=== PATIENT | male | born 1945 | race Caucasian/White ===

== ENCOUNTER 2022-05-03 15:43 | Inpatient (IN) ==
[2022-05-03 16:10] LABS: Basophils # 0.1 10*3/uL (0.0-0.2); Basophils % 0.7 % (0.0-0.8); Eosinophils # 0.1 10*3/uL (0.0-0.87); Eosinophils % 1.1 % (0.00-10.9); Hematocrit 49.5 VOL% (42.0-52.0); Hemoglobin 16.7 GM/DL (14.0-18.0); Immature Granulocytes % 0.4 %; Immature Granulocytes Absolute 0.04 #; Lymphocytes % 20.5 % (21.2-54.2); Mean Corpuscular HGB Conc 33.7 GM/DL (32-36); Mean Corpuscular Volume 88.6 FL (87-102); Mean Platelet Volume 10.2 FL (9.6-12.0); Monocytes # 0.8 10*3/uL (0.11-0.8); Monocytes % 8.6 % (1.7-12.7); Neutrophils % 68.7 % (38.7-73.9); Platelet Count 256 T/CUMM (130-400); Red Blood Count 5.59 MC/CUMM (3.8-5.5); Red Cell Distribution Width 13.4 % (9.3-17.3); White Blood Count 9.6 T/CUMM (4-12)
[2022-05-03 16:23] LABS: Albumin 3.6 G/DL (3.4-5.0); Bilirubin,Total 0.5 MG/DL (0.20-1.00); Calcium 9.1 MG/DL (8.5-10.1); Potassium 4.2 MMOL/L (3.5-5.1); Total Protein 7.5 G/DL (6.4-8.2)
[2022-05-03] MEDS ORDERED: ZALEPLON 5 MG CAPSULE PO PRN (18:05)
[2022-05-03] MEDS ORDERED: ONDANSETRON 4 MG/2 ML VIAL IV PRN (18:05)
[2022-05-03] MEDS ORDERED: GLUCAGON 1 MG VIAL IM PRN (18:05)
[2022-05-03] MEDS ORDERED: DEXTROSE 10% 250 ML BAG IV PRN (18:05)
[2022-05-03] MEDS ORDERED: ASPIRIN CHEW 81 MG TABLET PO STA (18:11)
[2022-05-03] MEDS ORDERED: MORPHINE 2 MG/1 ML SYRINGE IV PRN (18:11)
[2022-05-03] MEDS ORDERED: NITROGLYCERIN SL 0.4 MG TABLET SL PRN (18:12)
[2022-05-03] MEDS ORDERED: HEPARIN 5,000 UNIT/1 ML VIAL IV ONE (18:14)
[2022-05-03] MEDS ORDERED: ATORVASTATIN 40 MG TABLET PO STA (18:21)
[2022-05-03] MEDS: SODIUM CHLORIDE 0.9% 1,000 ML IV SCH ×2 (20:17→22:27)
[2022-05-03 21:48] LABS: INR 0.9; PT Patient Result 10.2 SECS (10.5-12.0); Partial Thromboplastin Time 26.8 SECS (23.7-32.9)
[2022-05-03] MEDS: METOPROLOL TARTRATE 25 MG TABLET PO SCH (22:26)
[2022-05-03] MEDS: HEPARIN DRIP 25,000 UNITS/500 ML PREMIX IV SCH (22:27)
[2022-05-04 05:19] LABS: Basophils # 0.1 10*3/uL (0.0-0.2); Basophils % 0.6 % (0.0-0.8); Eosinophils # 0.2 10*3/uL (0.0-0.87); Eosinophils % 2.1 % (0.00-10.9); Hemoglobin 15.4 GM/DL (14.0-18.0); Immature Granulocytes % 0.3 %; Immature Granulocytes Absolute 0.03 #; Lymphocytes # 1.9 10*3/uL (1.4-4.0); Lymphocytes % 20.2 % (21.2-54.2); Mean Corpuscular HGB Conc 32.8 GM/DL (32-36); Mean Corpuscular Volume 91.3 FL (87-102); Mean Platelet Volume 10.8 FL (9.6-12.0); Neutrophils % 66.8 % (38.7-73.9); Platelet Count 222 T/CUMM (130-400); Red Blood Count 5.15 MC/CUMM (3.8-5.5); Red Cell Distribution Width 13.3 % (9.3-17.3); White Blood Count 9.5 T/CUMM (4-12)
[2022-05-04 05:42] LABS: Alanine Aminotransferase 24 U/L (16-61); Albumin 3.1 G/DL (3.4-5.0); Alkaline Phosphatase 66 U/L (45-117); Aspartate Amino Transferase 23 U/L (0-37); Bilirubin,Total < 0.39 MG/DL (0.20-1.00); Blood Urea Nitrogen 26 MG/DL (7-18); Calcium 8.3 MG/DL (8.5-10.1); Carbon Dioxide 26 MMOL/L (21-32); Chloride 110 MMOL/L (98-107); Glucose 95 MG/DL (74-106); Osmolality,Calculated 283.4 MOS/KG (273-304); Potassium 3.9 MMOL/L (3.5-5.1); Sodium 140 MMOL/L (136-145); Total Protein 6.6 G/DL (6.4-8.2)
[2022-05-04 06:39] LABS: Risk Ratio 4.77; Thyroid Stimulating Hormone 3.41 uIU/ml (0.358-3.74); VLDL Cholesterol 44.2 MG/DL
[2022-05-04] MEDS: ASCORBIC ACID 500 MG TABLET PO SCH ×2 (09:05→21:04)
[2022-05-04] MEDS: PANTOPRAZOLE 40 MG TABLET PO SCH (09:05)
[2022-05-04] MEDS: ASPIRIN EC 81 MG TABLET PO SCH (09:05)
[2022-05-04] MEDS: METOPROLOL TARTRATE 25 MG TABLET PO SCH ×2 (09:05→21:04)
[2022-05-04] MEDS ORDERED: POTASSIUM CHLORIDE RIDER 10 MEQ/100 ML PREMIX IV PRN (09:19)
[2022-05-04] MEDS ORDERED: MAGNESIUM SULF RIDER 2 GM/50 ML PREMIX IV PRN (09:19)
[2022-05-04] MEDS: SODIUM CHLORIDE 0.9% 1,000 ML IV SCH ×2 (12:30→21:08)
[2022-05-04] MEDS: HEPARIN DRIP 25,000 UNITS/500 ML PREMIX IV SCH (19:36)
[2022-05-04] MEDS ORDERED: ATORVASTATIN 80 MG TABLET PO SCH (21:00)
[2022-05-04] MEDS: CETIRIZINE 10 MG TABLET PO SCH (21:04)
[2022-05-04] MEDS: FLUTICASONE 50 MCG NASAL SPRAY 16 GM BOTTLE BOTH NARES SCH (21:04)
[2022-05-05 03:07] LABS: Basophils # 0.1 10*3/uL (0.0-0.2); Basophils % 0.9 % (0.0-0.8); Eosinophils # 0.2 10*3/uL (0.0-0.87); Eosinophils % 2.4 % (0.00-10.9); Hematocrit 40.7 VOL% (42.0-52.0); Hemoglobin 13.4 GM/DL (14.0-18.0); Immature Granulocytes % 0.5 %; Immature Granulocytes Absolute 0.04 #; Lymphocytes # 1.8 10*3/uL (1.4-4.0); Lymphocytes % 23.5 % (21.2-54.2); Mean Corpuscular HGB Conc 32.9 GM/DL (32-36); Mean Corpuscular Volume 91.9 FL (87-102); Mean Platelet Volume 10.6 FL (9.6-12.0); Monocytes # 0.8 10*3/uL (0.11-0.8); Neutrophils % 62.7 % (38.7-73.9); Platelet Count 199 T/CUMM (130-400); Red Blood Count 4.43 MC/CUMM (3.8-5.5); Red Cell Distribution Width 13.3 % (9.3-17.3); White Blood Count 7.6 T/CUMM (4-12)
[2022-05-05 03:28] LABS: Albumin 2.7 G/DL (3.4-5.0); Bilirubin,Total 0.4 MG/DL (0.20-1.00); Potassium 4.2 MMOL/L (3.5-5.1); Total Protein 6.1 G/DL (6.4-8.2)
[2022-05-05 03:32] LABS: Osmolality,Calculated 281.3 MOS/KG (273-304); Potassium 4.1 MMOL/L (3.5-5.1)
[2022-05-05] MEDS: FLUTICASONE 50 MCG NASAL SPRAY 16 GM BOTTLE BOTH NARES SCH (09:39)
[2022-05-05] MEDS: ASPIRIN EC 81 MG TABLET PO SCH (09:40)
[2022-05-05] MEDS: CETIRIZINE 10 MG TABLET PO SCH (09:40)
[2022-05-05] MEDS: ASCORBIC ACID 500 MG TABLET PO SCH (09:40)
[2022-05-05] MEDS: PANTOPRAZOLE 40 MG TABLET PO SCH (09:40)
[2022-05-05] MEDS: METOPROLOL TARTRATE 25 MG TABLET PO SCH (09:40)
[2022-05-05] MEDS ORDERED: HEPARIN/NACL 0.9% 2 UNITS/ML 2,000 UNIT/1,000 ML BAG IV ONE (10:51)
[2022-05-05] MEDS ORDERED: DIAZEPAM 5 MG TABLET PO ONE (11:00)
[2022-05-05] MEDS ORDERED: diphenhydrAMINE CAP 50 MG CAPSULE PO ONE (11:00)
[2022-05-05] MEDS ORDERED: MIDAZOLAM 2 MG/2 ML VIAL ONE (11:20)
[2022-05-05] MEDS ORDERED: HYDROmorphone 1 MG/1 ML SYRINGE ONE (11:20)
[2022-05-05] MEDS ORDERED: HEPARIN 5,000 UNIT/1 ML VIAL ONE (11:44)
[2022-05-05] MEDS ORDERED: VANCOMYCIN 1,000 MG VIAL ONE ×2 (11:58→13:13)
[2022-05-05] MEDS ORDERED: VANCOMYCIN 500 MG VIAL ONE (11:58)
[2022-05-05] MEDS ORDERED: HEPARIN/NACL 0.9% 2 UNITS/ML 1,000 UNIT/500 ML BAG IV ONE ×4 (11:58→23:35)
[2022-05-05] MEDS ORDERED: PAPAVERINE 60 MG/2 ML VIAL ONE (11:58)
[2022-05-05] MEDS ORDERED: MIDAZOLAM 10 MG/2 ML VIAL ONE ×3 (12:03→13:48)
[2022-05-05] MEDS ORDERED: SUFentanil 250 MCG/5 ML AMP ONE ×2 (12:03)
[2022-05-05] MEDS ORDERED: CEFUROXIME INJ 1,500 MG in SODIUM CHLORIDE 0.9% 100 ML IV ONE (12:13)
[2022-05-05] MEDS ORDERED: SODIUM CHLORIDE 0.9% 1,000 ML IV PRN (12:14)
[2022-05-05] MEDS ORDERED: NITROPRUSSIDE 50 MG/2 ML VIAL ONE ×2 (12:47)
[2022-05-05] MEDS ORDERED: SODIUM BICARBONATE 50 MEQ/50 ML SYRINGE IV ONE (12:48)
[2022-05-05] MEDS ORDERED: EPINEPHrine 1 MG/10 ML SYRINGE ONE (12:48)
[2022-05-05] MEDS ORDERED: PHENYLEPHRINE DRIP 40 MG/250 ML PREMIX IV ONE (12:48)
[2022-05-05] MEDS ORDERED: CALCIUM CHLORIDE 1,000 MG/10 ML SYRINGE IV ONE (12:49)
[2022-05-05] MEDS ORDERED: ATROPINE 1 MG/10 ML SYRINGE ONE (12:50)
[2022-05-05 13:06] LABS: ABG Base Excess -3.4 MMOL/L (-2.5-2.5); ABG HCO3 21.6 MMOL/L (20-26); ABG Oxygen Saturation 99.6 % (95-100); ABG PCO2 36.1 MM HG (35-48); ABG PH 7.376 (7.35-7.45); ABG TCO2 18.5 MMOL/L (23-27); Glucose Heart Surgery 93 MG/DL (74-106); Hematocrit Heart Surgery 40.9 PERCENT (42-52); Hemoglobin Heart Surgery 13.3 G/DL (14.0-18.0); PCO2 Patient Temp Arterial 36.1 MMHG; PH Patient Temp Arterial 7.376; Patient Temperature 37 CELCIUS; Potassium Heart/CVR 4.4 MMOL/L (3.5-5.1); Sodium Heart/CVR 139 MMOL/L (135-145)
[2022-05-05] MEDS ORDERED: POTASSIUM CHLORIDE RIDER 20 MEQ/100 ML PREMIX IV ONE (13:11)
[2022-05-05] MEDS ORDERED: ALBUMIN 5% 12.5 GM/250 ML VIAL IV ONE (13:12)
[2022-05-05] MEDS ORDERED: PHENYLEPHRINE 1 MG/10 ML SYRINGE IV ONE (13:28)
[2022-05-05] MEDS ORDERED: SEVOFLURANE 1 UNIT/15 MINUTE INH ONE (13:28)
[2022-05-05] MEDS ORDERED: VECURONIUM 10 MG VIAL IV ONE ×3 (13:28→14:52)
[2022-05-05] MEDS ORDERED: ETOMIDATE 40 MG/20 ML VIAL IV ONE ×2 (13:28)
[2022-05-05] MEDS ORDERED: SUCCINYLCHOLINE 200 MG/10 ML VIAL ONE (13:28)
[2022-05-05] MEDS ORDERED: SODIUM CHLORIDE 0.9% 250 ML IV ONE ×2 (13:29)
[2022-05-05] MEDS ORDERED: SODIUM CHLORIDE 0.9% 100 ML IV ONE (13:29)
[2022-05-05] MEDS ORDERED: AMINOCAPROIC ACID 5,000 MG/20 ML VIAL ONE (13:29)
[2022-05-05] MEDS ORDERED: SODIUM CHLORIDE 0.9% 1,000 ML IV ONE (13:29)
[2022-05-05] MEDS ORDERED: MINERAL OIL/PETROLATUM OPH OINT 3.5 GM TUBE ONE (13:29)
[2022-05-05] MEDS ORDERED: LACTATED RINGERS 1,000 ML IV ONE (13:29)
[2022-05-05] MEDS ORDERED: PHENYLEPHRINE DRIP 20 MG/250 ML PREMIX IV ONE (13:30)
[2022-05-05 13:39] LABS: Bilirubin,Urine Negative (Negative); Blood, Urine Negative (Negative); Glucose,Urine (UA) Negative (Negative); Ketones,Urine Negative (Negative); Nitrite,Urine Negative (Negative); Protein,Urine Negative (Negative); Urine Appearance Clear (Clear); Urine Color Yellow (Yellow); Urine Specific Gravity 1.015 (1.001-1.035); Urine Urobilinogen 0.2 eU/dL (<2.0); Urine pH 6.5 (4.5-8.0)
[2022-05-05 13:43] LABS: Mucus,Urine Occasional /LPF (Occasional); RBC,Urine 2 /HPF (0-4)
[2022-05-05 14:31] LABS: Hematocrit Heart Surgery 28.6 PERCENT (42-52); Hemoglobin Heart Surgery 9.2 G/DL (14.0-18.0); PH Patient Temp Venous 7.406; PO2 Patient Temp Venous 47.2 MM HG; Potassium Heart/CVR 4.6 MMOL/L (3.5-5.1); VBG Base Excess -0.6 MEQ/L (0-4); VBG HCO3 23.7 MEQ/L (24-28); VBG Oxygen Saturation 83.5 %; VBG PH 7.406; VBG PO2 47.2 MMHG (17-40)
[2022-05-05] MEDS ORDERED: CALCIUM CHLORIDE 1,000 MG/10 ML VIAL IV ONE (14:53)
[2022-05-05 14:59] LABS: Hemoglobin Heart Surgery 9.4 G/DL (14.0-18.0); PH Patient Temp Venous 7.409; Potassium Heart/CVR 4.9 MMOL/L (3.5-5.1); VBG Base Excess -1.5 MEQ/L (0-4); VBG HCO3 22.8 MEQ/L (24-28); VBG Oxygen Saturation 79.2 %; VBG PH 7.409; VBG Total CO2 20.9 MMOL/L
[2022-05-05 15:36] LABS: ABG Base Excess -0.4 MMOL/L (-2.5-2.5); ABG HCO3 24.1 MMOL/L (20-26); ABG Oxygen Saturation 99.3 % (95-100); ABG PCO2 36.8 MM HG (35-48); ABG PH 7.418 (7.35-7.45); ABG TCO2 21.4 MMOL/L (23-27); Glucose Heart Surgery 174 MG/DL (74-106); Hematocrit Heart Surgery 32.8 PERCENT (42-52); Hemoglobin Heart Surgery 10.6 G/DL (14.0-18.0); Ionized Calcium Arterial 1.19 MMOL/L (1.21-1.46); PCO2 Patient Temp Arterial 36.8 MMHG; PH Patient Temp Arterial 7.418; Patient Temperature 37 CELCIUS; Potassium Heart/CVR 4.1 MMOL/L (3.5-5.1); Sodium Heart/CVR 135 MMOL/L (135-145)
[2022-05-05] MEDS ORDERED: MAGNESIUM SULFATE 5 GM/10 ML VIAL IV ONE (15:38)
[2022-05-05] MEDS ORDERED: methylPREDNISolone SOD SUC 1,000 MG/8 ML VIAL ONE (15:38)
[2022-05-05] MEDS ORDERED: ALBUMIN 25% 25 GM/100 ML VIAL IV ONE (15:38)
[2022-05-05] MEDS ORDERED: LIDOCAINE 2% 5 ML VIAL ONE (15:38)
[2022-05-05] MEDS ORDERED: MANNITOL 12.5 GM/50 ML VIAL IV ONE (15:39)
[2022-05-05] MEDS ORDERED: PROTAMINE SULFATE 250 MG/25 ML VIAL IV ONE (15:39)
[2022-05-05] MEDS ORDERED: HEPARIN 10,000 UNIT/10 ML VIAL ONE (15:39)
[2022-05-05] MEDS ORDERED: DEXTROSE 5% KCL 20 MEQ 20 MEQ/1,000 ML BAG IV ONE (15:39)
[2022-05-05] MEDS ORDERED: SODIUM BICARBONATE 50 MEQ/50 ML VIAL IV ONE ×3 (15:40→23:10)
[2022-05-05] MEDS ORDERED: FUROSEMIDE 20 MG/2 ML VIAL ONE (15:40)
[2022-05-05] MEDS ORDERED: MIDAZOLAM 10 MG/2 ML VIAL IV PRN (16:02)
[2022-05-05] MEDS ORDERED: VECURONIUM 10 MG VIAL IV PRN ×2 (16:02)
[2022-05-05] MEDS ORDERED: MAGNESIUM SULF RIDER 2 GM/50 ML PREMIX IV PRN (16:02)
[2022-05-05] MEDS ORDERED: CALCIUM CHLORIDE 1,000 MG/10 ML SYRINGE IV PRN (16:02)
[2022-05-05] MEDS ORDERED: INSULIN REGULAR 100 UNIT/ML IV ONE (16:02)
[2022-05-05] MEDS ORDERED: CHLORHEXIDINE 4% SOLN 118 ML BOTTLE TOP PRN (16:02)
[2022-05-05] MEDS ORDERED: SODIUM CHLORIDE 0.45% 1,000 ML IV SCH ×2 (16:02)
[2022-05-05] MEDS ORDERED: MAGNESIUM SULF RIDER 4 GM/100 ML PREMIX IV PRN (16:02)
[2022-05-05] MEDS ORDERED: MORPHINE 10 MG/1 ML VIAL IV PRN (16:02)
[2022-05-05] MEDS ORDERED: ONDANSETRON 4 MG/2 ML VIAL IV PRN (16:02)
[2022-05-05] MEDS ORDERED: NITROPRUSSIDE 100 MG in DEXTROSE 5% 250 ML IV PRN (16:02)
[2022-05-05] MEDS ORDERED: LACTATED RINGERS 250 ML IV PRN (16:02)
[2022-05-05] MEDS ORDERED: ACETAMINOPHEN 650 MG SUPP RECTAL PRN (16:02)
[2022-05-05] MEDS ORDERED: INSULIN REGULAR 100 UNIT/ML IV PRN (16:02)
[2022-05-05] MEDS ORDERED: DEXTROSE 10% 250 ML BAG IV PRN ×2 (16:08→16:09)
[2022-05-05 16:53] LABS: ABG PCO2 38.3 MM HG (35-48); ABG PH 7.401 (7.35-7.45)
[2022-05-05 16:54] LABS: ABG Base Excess -0.8 MMOL/L (-2.5-2.5); ABG HCO3 23.8 MMOL/L (20-26); ABG Oxygen Saturation 97.7 % (95-100); ABG TCO2 20.9 MMOL/L (23-27); Glucose Heart Surgery 149 MG/DL (74-106); Hematocrit Heart Surgery 37.8 PERCENT (42-52); Hemoglobin Heart Surgery 12.3 G/DL (14.0-18.0); Potassium Heart/CVR 3.6 MMOL/L (3.5-5.1)
[2022-05-05] MEDS: ALBUMIN 5% 12.5 GM/250 ML VIAL IV PRN ×6 (17:00→21:28)
[2022-05-05 17:04] LABS: PT Patient Result 10.9 SECS (10.5-12.0); Partial Thromboplastin Time 27.6 SECS (23.7-32.9)
[2022-05-05 17:12] LABS: Basophils % 0.3 % (0.0-0.8); Eosinophils # 0.1 10*3/uL (0.0-0.87); Eosinophils % 0.4 % (0.00-10.9); Hematocrit 36.9 VOL% (42.0-52.0); Hemoglobin 12.1 GM/DL (14.0-18.0); Immature Granulocytes % 0.7 %; Immature Granulocytes Absolute 0.09 #; Lymphocytes # 0.7 10*3/uL (1.4-4.0); Lymphocytes % 5.4 % (21.2-54.2); Mean Corpuscular HGB Conc 32.8 GM/DL (32-36); Mean Corpuscular Volume 91.6 FL (87-102); Mean Platelet Volume 10.2 FL (9.6-12.0); Monocytes # 0.7 10*3/uL (0.11-0.8); Monocytes % 5.5 % (1.7-12.7); Neutrophils % 87.7 % (38.7-73.9); Platelet Count 167 T/CUMM (130-400); Red Blood Count 4.03 MC/CUMM (3.8-5.5); Red Cell Distribution Width 13.2 % (9.3-17.3); White Blood Count 13.4 T/CUMM (4-12)
[2022-05-05] MEDS: POTASSIUM CHLORIDE RIDER 20 MEQ/100 ML PREMIX IV PRN ×2 (17:26→20:18)
[2022-05-05 17:29] LABS: CKMB % 5.91 %; Calcium 8.4 MG/DL (8.5-10.1); Osmolality,Calculated 285.1 MOS/KG (273-304); Potassium 3.7 MMOL/L (3.5-5.1); Total Protein 5.8 G/DL (6.4-8.2)
[2022-05-05 17:33] LABS: High Sensitive Troponin I* 2578.3 ng/L (0-78)
[2022-05-05 17:40] LABS: ABG Base Excess -0.2 MMOL/L (-2.5-2.5); ABG HCO3 24.2 MMOL/L (20-26); ABG Oxygen Saturation 96.4 % (95-100); ABG PCO2 37.8 MM HG (35-48); ABG PH 7.412 (7.35-7.45); ABG PO2 85.2 MM HG (80-95); ABG TCO2 21.2 MMOL/L (23-27); Glucose Heart Surgery 147 MG/DL (74-106); Hematocrit Heart Surgery 37.9 PERCENT (42-52); Hemoglobin Heart Surgery 12.3 G/DL (14.0-18.0); Potassium Heart/CVR 4.2 MMOL/L (3.5-5.1)
[2022-05-05] MEDS: LACTATED RINGERS 1,000 ML IV PRN ×3 (18:08→21:29)
[2022-05-05] MEDS: POTASSIUM CHLORIDE RIDER 10 MEQ/100 ML PREMIX IV PRN (19:25)
[2022-05-05] MEDS: SODIUM CHLORIDE 0.9% 1,000 ML IV SCH (19:26)
[2022-05-05 20:02] LABS: ABG Base Excess -0.3 MMOL/L (-2.5-2.5); ABG HCO3 24.2 MMOL/L (20-26); ABG Oxygen Saturation 96.6 % (95-100); ABG PCO2 39.4 MM HG (35-48); ABG PH 7.399 (7.35-7.45); ABG PO2 88.2 MM HG (80-95); ABG TCO2 21.8 MMOL/L (23-27); Glucose Heart Surgery 161 MG/DL (74-106); Hematocrit Heart Surgery 34.6 PERCENT (42-52); Hemoglobin Heart Surgery 11.2 G/DL (14.0-18.0); Potassium Heart/CVR 3.9 MMOL/L (3.5-5.1)
[2022-05-05] MEDS: INSULIN REGULAR 100 UNIT/ML SUBCUT SCH (20:10)
[2022-05-05] MEDS ORDERED: GLUCAGON 1 MG VIAL IM PRN (20:11)
[2022-05-05] MEDS ORDERED: DEXTROSE 50% 25 GM/50 ML VIAL IV PRN (20:11)
[2022-05-05] MEDS: CHLORHEXIDINE 0.12% ORAL RINSE 60 ML BOTTLE SWISH/SPIT SCH (20:18)
[2022-05-05] MEDS: PHENYLEPHRINE DRIP 40 MG/250 ML PREMIX IV PRN (20:27)
[2022-05-05] MEDS ORDERED: EPINEPHrine 1 MG/ML VIAL ONE (20:34)
[2022-05-05] MEDS: MIDAZOLAM 2 MG/2 ML VIAL IV PRN ×2 (20:40→22:25)
[2022-05-05] MEDS: MORPHINE 2 MG/1 ML SYRINGE IV PRN (22:00)
[2022-05-05 22:20] LABS: ABG Base Excess -3.6 MMOL/L (-2.5-2.5); ABG HCO3 21.4 MMOL/L (20-26); ABG Oxygen Saturation 97.4 % (95-100); ABG PCO2 48.3 MM HG (35-48); ABG PH 7.289 (7.35-7.45); ABG TCO2 21.4 MMOL/L (23-27); Glucose Heart Surgery 174 MG/DL (74-106); Hematocrit Heart Surgery 30.6 PERCENT (42-52); Hemoglobin Heart Surgery 9.9 G/DL (14.0-18.0); Potassium Heart/CVR 3.7 MMOL/L (3.5-5.1)
[2022-05-05] MEDS ORDERED: DEXMEDETOMIDINE 200 MCG in SODIUM CHLORIDE 0.9% 48 ML IV PRN (22:25)
[2022-05-05 23:00] LABS: ABG Base Excess -6.9 MMOL/L (-2.5-2.5); ABG HCO3 18.8 MMOL/L (20-26); ABG Oxygen Saturation 96.6 % (95-100); ABG PCO2 45.7 MM HG (35-48); ABG PH 7.253 (7.35-7.45); ABG TCO2 18.8 MMOL/L (23-27); Glucose Heart Surgery 201 MG/DL (74-106); Hematocrit Heart Surgery 30.1 PERCENT (42-52); Hemoglobin Heart Surgery 9.7 G/DL (14.0-18.0)
[2022-05-05 23:30] LABS: ABG Base Excess -5.6 MMOL/L (-2.5-2.5); ABG HCO3 19.8 MMOL/L (20-26); ABG Oxygen Saturation 97.3 % (95-100); ABG PCO2 41.1 MM HG (35-48); ABG PH 7.305 (7.35-7.45); ABG TCO2 18.8 MMOL/L (23-27); Glucose Heart Surgery 219 MG/DL (74-106); Hematocrit Heart Surgery 30.5 PERCENT (42-52); Hemoglobin Heart Surgery 9.9 G/DL (14.0-18.0); Potassium Heart/CVR 3.8 MMOL/L (3.5-5.1)
[2022-05-06] MEDS ORDERED: SODIUM BICARBONATE 50 MEQ/50 ML VIAL IV ONE ×4 (00:09→03:09)
[2022-05-06] MEDS ORDERED: FUROSEMIDE 40 MG/4 ML VIAL IV ONE ×2 (00:22→15:00)
[2022-05-06] MEDS: CEFUROXIME INJ 1,500 MG in SODIUM CHLORIDE 0.9% 100 ML IV SCH ×2 (00:50→12:27)
[2022-05-06] MEDS: INSULIN REGULAR 100 UNIT/ML SUBCUT SCH ×6 (01:02→21:05)
[2022-05-06 01:25] LABS: ABG Base Excess -9.2 MMOL/L (-2.5-2.5); ABG HCO3 17.1 MMOL/L (20-26); ABG Oxygen Saturation 97.8 % (95-100); ABG PCO2 37.4 MM HG (35-48); ABG PH 7.269 (7.35-7.45); ABG TCO2 15.6 MMOL/L (23-27); Glucose Heart Surgery 265 MG/DL (74-106); Hematocrit Heart Surgery 33.8 PERCENT (42-52); Potassium Heart/CVR 3.3 MMOL/L (3.5-5.1)
[2022-05-06] MEDS: POTASSIUM CHLORIDE RIDER 20 MEQ/100 ML PREMIX IV PRN ×5 (01:31→22:27)
[2022-05-06 01:46] LABS: CKMB % 5.34 %
[2022-05-06 01:50] LABS: High Sensitive Troponin I* 6378.3 ng/L (0-78)
[2022-05-06] MEDS ORDERED: SODIUM BICARBONATE 50 MEQ/50 ML SYRINGE IV ONE (02:05)
[2022-05-06] MEDS: POTASSIUM CHLORIDE RIDER 10 MEQ/100 ML PREMIX IV PRN ×3 (02:40→16:30)
[2022-05-06] MEDS: INSULIN REGULAR DRIP 100 ML IV SCH ×2 (03:00→16:05)
[2022-05-06] MEDS: SODIUM BICARB INJ 100 MEQ in STERILE WATER INJ 1,000 ML IV SCH ×2 (03:02→14:16)
[2022-05-06 03:04] LABS: ABG Base Excess -7.3 MMOL/L (-2.5-2.5); ABG HCO3 18.5 MMOL/L (20-26); ABG Oxygen Saturation 97.9 % (95-100); ABG PCO2 35.8 MM HG (35-48); ABG PH 7.314 (7.35-7.45); ABG TCO2 16.4 MMOL/L (23-27); Glucose Heart Surgery 279 MG/DL (74-106); Hematocrit Heart Surgery 34.5 PERCENT (42-52); Hemoglobin Heart Surgery 11.2 G/DL (14.0-18.0); Potassium Heart/CVR 3.8 MMOL/L (3.5-5.1)
[2022-05-06 03:35] LABS: VBG Base Excess -4.4 MEQ/L (0-4); VBG HCO3 20.4 MEQ/L (24-28); VBG Oxygen Saturation 73.6 %; VBG PCO2 40.6 MMHG (41-51); VBG PH 7.327; VBG PO2 42.1 MMHG (17-40); VBG Total CO2 19.4 MMOL/L
[2022-05-06 04:27] LABS: ABG Base Excess -2.3 MMOL/L (-2.5-2.5); ABG HCO3 22.5 MMOL/L (20-26); ABG Oxygen Saturation 98.2 % (95-100); ABG PCO2 33.3 MM HG (35-48); ABG PH 7.417 (7.35-7.45); ABG TCO2 19.3 MMOL/L (23-27); Glucose Heart Surgery 253 MG/DL (74-106); Hematocrit Heart Surgery 33.9 PERCENT (42-52); Potassium Heart/CVR 4.3 MMOL/L (3.5-5.1)
[2022-05-06 04:31] LABS: Basophils % 0.1 % (0.0-0.8); Hematocrit 33.1 VOL% (42.0-52.0); Immature Granulocytes % 0.7 %; Immature Granulocytes Absolute 0.11 #; Lymphocytes # 0.2 10*3/uL (1.4-4.0); Lymphocytes % 1.5 % (21.2-54.2); Mean Corpuscular HGB Conc 33.2 GM/DL (32-36); Mean Corpuscular Volume 90.7 FL (87-102); Mean Platelet Volume 10.3 FL (9.6-12.0); Monocytes # 0.7 10*3/uL (0.11-0.8); Monocytes % 4.4 % (1.7-12.7); Neutrophils % 93.3 % (38.7-73.9); Platelet Count 163 T/CUMM (130-400); Red Blood Count 3.65 MC/CUMM (3.8-5.5); Red Cell Distribution Width 14.1 % (9.3-17.3); White Blood Count 16.4 T/CUMM (4-12)
[2022-05-06 04:51] LABS: Band Neutrophils 1 % (0-10); Lymphocytes 1 % (20-55); Total Cells Counted 100
[2022-05-06 04:52] LABS: Microcytosis Slight; Platelet Estimate Adequate
[2022-05-06 04:54] LABS: Bilirubin,Total 1.1 MG/DL (0.20-1.00); Calcium 7.7 MG/DL (8.5-10.1); Osmolality,Calculated 296.8 MOS/KG (273-304); Potassium 4.4 MMOL/L (3.5-5.1); Total Protein 6.1 G/DL (6.4-8.2)
[2022-05-06 04:56] LABS: Bilirubin,Direct 0.59 MG/DL (0.0-0.20)
[2022-05-06 06:02] LABS: ABG Base Excess 2.6 MMOL/L (-2.5-2.5); ABG HCO3 26.7 MMOL/L (20-26); ABG Oxygen Saturation 98.7 % (95-100); ABG PCO2 31.5 MM HG (35-48); ABG TCO2 22.4 MMOL/L (23-27); Glucose Heart Surgery 213 MG/DL (74-106); Hematocrit Heart Surgery 33.6 PERCENT (42-52); Hemoglobin Heart Surgery 10.9 G/DL (14.0-18.0)
[2022-05-06 06:36] LABS: ABG HCO3 27.1 MMOL/L (20-26); ABG Oxygen Saturation 98.1 % (95-100); ABG PCO2 35.5 MM HG (35-48); ABG PH 7.479 (7.35-7.45); ABG PO2 98.7 MM HG (80-95); ABG TCO2 23.6 MMOL/L (23-27); Glucose Heart Surgery 198 MG/DL (74-106); Hematocrit Heart Surgery 33.9 PERCENT (42-52); Potassium Heart/CVR 3.7 MMOL/L (3.5-5.1)
[2022-05-06] MEDS: CHLORHEXIDINE 0.12% ORAL RINSE 60 ML BOTTLE SWISH/SPIT SCH ×2 (09:07→22:50)
[2022-05-06 09:40] LABS: ABG HCO3 28.9 MMOL/L (20-26); ABG Oxygen Saturation 97.6 % (95-100); ABG PCO2 36.8 MM HG (35-48); ABG PH 7.496 (7.35-7.45); ABG TCO2 25.4 MMOL/L (23-27); Glucose Heart Surgery 127 MG/DL (74-106); Hematocrit Heart Surgery 33.5 PERCENT (42-52); Hemoglobin Heart Surgery 10.8 G/DL (14.0-18.0); Potassium Heart/CVR 3.5 MMOL/L (3.5-5.1)
[2022-05-06] MEDS: MORPHINE 2 MG/1 ML SYRINGE IV PRN (10:16)
[2022-05-06] MEDS ORDERED: PANTOPRAZOLE 40 MG VIAL IV ONE (10:33)
[2022-05-06] MEDS ORDERED: ASPIRIN CHEW 81 MG TABLET PO ONE (10:33)
[2022-05-06 10:35] LABS: ABG Base Excess 4.2 MMOL/L (-2.5-2.5); ABG HCO3 28.2 MMOL/L (20-26); ABG Oxygen Saturation 97.9 % (95-100); ABG PCO2 39.5 MM HG (35-48); ABG PH 7.462 (7.35-7.45); ABG PO2 94.9 MM HG (80-95); ABG TCO2 25.4 MMOL/L (23-27); Glucose Heart Surgery 107 MG/DL (74-106); Hematocrit Heart Surgery 32.6 PERCENT (42-52); Hemoglobin Heart Surgery 10.5 G/DL (14.0-18.0); Potassium Heart/CVR 3.8 MMOL/L (3.5-5.1)
[2022-05-06 11:24] LABS: ABG Base Excess 4.5 MMOL/L (-2.5-2.5); ABG HCO3 28.5 MMOL/L (20-26); ABG Oxygen Saturation 98.3 % (95-100); ABG PCO2 40.1 MM HG (35-48); ABG PH 7.462 (7.35-7.45); ABG TCO2 25.7 MMOL/L (23-27); Glucose Heart Surgery 102 MG/DL (74-106); Hematocrit Heart Surgery 33.4 PERCENT (42-52); Hemoglobin Heart Surgery 10.8 G/DL (14.0-18.0); Potassium Heart/CVR 3.8 MMOL/L (3.5-5.1)
[2022-05-06 11:46] LABS: CKMB % 3.83 %; High Sensitive Troponin I* 5754.3 ng/L (0-78)
[2022-05-06 13:23] LABS: ABG Base Excess 3.6 MMOL/L (-2.5-2.5); ABG HCO3 27.6 MMOL/L (20-26); ABG Oxygen Saturation 98.6 % (95-100); ABG PCO2 40.6 MM HG (35-48); ABG PH 7.445 (7.35-7.45); Glucose Heart Surgery 143 MG/DL (74-106); Hemoglobin Heart Surgery 10.7 G/DL (14.0-18.0); Potassium Heart/CVR 3.9 MMOL/L (3.5-5.1)
[2022-05-06] MEDS ORDERED: KETOROLAC 15 MG/1 ML VIAL IV ONE (14:45)
[2022-05-06] MEDS: PHENYLEPHRINE DRIP 40 MG/250 ML PREMIX IV PRN (15:43)
[2022-05-06] MEDS: ALBUMIN 5% 12.5 GM/250 ML VIAL IV PRN (16:04)
[2022-05-06 17:44] LABS: CKMB % 2.65 %; High Sensitive Troponin I* 4176.2 ng/L (0-78)
[2022-05-06] MEDS ORDERED: KETOROLAC 30 MG/1 ML VIAL IV PRN (21:00)
[2022-05-06 21:30] LABS: ABG Base Excess 2.2 MMOL/L (-2.5-2.5); ABG HCO3 26.3 MMOL/L (20-26); ABG Oxygen Saturation 97.5 % (95-100); ABG PCO2 36.8 MM HG (35-48); ABG PH 7.456 (7.35-7.45); ABG PO2 96.6 MM HG (80-95); ABG TCO2 23.6 MMOL/L (23-27); Glucose Heart Surgery 143 MG/DL (74-106); Hematocrit Heart Surgery 30.5 PERCENT (42-52); Hemoglobin Heart Surgery 9.8 G/DL (14.0-18.0)
[2022-05-07] MEDS: CEFUROXIME INJ 1,500 MG in SODIUM CHLORIDE 0.9% 100 ML IV SCH (00:50)
[2022-05-07] MEDS ORDERED: FUROSEMIDE 40 MG/4 ML VIAL IV ONE (03:41)
[2022-05-07 04:35] LABS: Basophils % 0.1 % (0.0-0.8); Hematocrit 31.1 VOL% (42.0-52.0); Hemoglobin 9.8 GM/DL (14.0-18.0); Immature Granulocytes % 0.6 %; Immature Granulocytes Absolute 0.11 #; Lymphocytes # 0.8 10*3/uL (1.4-4.0); Lymphocytes % 4.2 % (21.2-54.2); Mean Corpuscular HGB Conc 31.5 GM/DL (32-36); Mean Corpuscular Volume 94.5 FL (87-102); Monocytes # 1.4 10*3/uL (0.11-0.8); Monocytes % 7.7 % (1.7-12.7); Neutrophils % 87.4 % (38.7-73.9); Platelet Count 127 T/CUMM (130-400); Red Blood Count 3.29 MC/CUMM (3.8-5.5); Red Cell Distribution Width 14.6 % (9.3-17.3); White Blood Count 18.5 T/CUMM (4-12)
[2022-05-07 04:47] LABS: Bilirubin,Direct 0.25 MG/DL (0.0-0.20)
[2022-05-07 04:48] LABS: Albumin 3.3 G/DL (3.4-5.0); Bilirubin,Total 0.7 MG/DL (0.20-1.00); Osmolality,Calculated 294.8 MOS/KG (273-304); Partial Thromboplastin Time 25.6 SECS (23.7-32.9); Potassium 4.4 MMOL/L (3.5-5.1)
[2022-05-07 05:05] LABS: Lymphocytes 3 % (20-55); Platelet Estimate Normal; Total Cells Counted 100
[2022-05-07] MEDS: POTASSIUM CHLORIDE RIDER 10 MEQ/100 ML PREMIX IV PRN (06:25)
[2022-05-07 08:29] LABS: % Iron Saturation 10.6 % (18-50); Ferritin 404.7 ng/mL (26-388)
[2022-05-07] MEDS ORDERED: LIDOCAINE 1% 20 ML VIAL MISC INJ ONE (09:30)
[2022-05-07] MEDS: INSULIN REGULAR 100 UNIT/ML SUBCUT SCH ×4 (10:12→20:50)
[2022-05-07] MEDS: ASCORBIC ACID 500 MG TABLET PO SCH (10:30)
[2022-05-07] MEDS: ATORVASTATIN 40 MG TABLET PO SCH (10:30)
[2022-05-07] MEDS: CHLORHEXIDINE 0.12% ORAL RINSE 60 ML BOTTLE SWISH/SPIT SCH ×2 (10:35→20:51)
[2022-05-07] MEDS ORDERED: ASPIRIN EC 81 MG TABLET PO ONE (10:55)
[2022-05-07] MEDS ORDERED: ACETAMINOPHEN 325 MG TABLET PO PRN ×2 (13:12→15:15)
[2022-05-07] MEDS ORDERED: MAGNESIUM SULF RIDER 2 GM/50 ML PREMIX IV PRN (15:15)
[2022-05-07] MEDS ORDERED: ONDANSETRON 4 MG/2 ML VIAL IV PRN (15:15)
[2022-05-07] MEDS ORDERED: MAGNESIUM HYDROXIDE SUSP 30 ML UDCUP PO PRN (15:15)
[2022-05-07] MEDS ORDERED: GLUCAGON 1 MG VIAL IM PRN (15:15)
[2022-05-07] MEDS ORDERED: SODIUM CHLOR 0.45% KCL 20 MEQ 20 MEQ/1,000 ML BAG IV SCH (15:15)
[2022-05-07] MEDS ORDERED: POTASSIUM CHLORIDE 20 MEQ TABLET PO PRN (15:15)
[2022-05-07] MEDS ORDERED: MAGNESIUM SULF RIDER 4 GM/100 ML PREMIX IV PRN (15:15)
[2022-05-07] MEDS ORDERED: DEXTROSE 10% 250 ML BAG IV PRN (15:15)
[2022-05-07] MEDS ORDERED: ALUMINUM/MAGNES/SIMETH MAX STR 30 ML UDCUP PO PRN (15:15)
[2022-05-07] MEDS: oxyCODONE/ACETAMINOPHEN 5-325 MG TABLET PO PRN (20:51)
[2022-05-08] MEDS ORDERED: FUROSEMIDE 40 MG/4 ML VIAL IV ONE (06:00)
[2022-05-08 06:04] LABS: Basophils % 0.1 % (0.0-0.8); Hematocrit 29.5 VOL% (42.0-52.0); Hemoglobin 9.5 GM/DL (14.0-18.0); Immature Granulocytes % 0.8 %; Immature Granulocytes Absolute 0.11 #; Lymphocytes # 1.2 10*3/uL (1.4-4.0); Lymphocytes % 8.8 % (21.2-54.2); Mean Corpuscular HGB Conc 32.2 GM/DL (32-36); Mean Corpuscular Volume 93.1 FL (87-102); Monocytes # 1.2 10*3/uL (0.11-0.8); Monocytes % 8.9 % (1.7-12.7); Neutrophils % 81.4 % (38.7-73.9); Platelet Count 122 T/CUMM (130-400); Red Blood Count 3.17 MC/CUMM (3.8-5.5); Red Cell Distribution Width 14.1 % (9.3-17.3); White Blood Count 13.6 T/CUMM (4-12)
[2022-05-08 06:33] LABS: Bilirubin,Direct 0.19 MG/DL (0.0-0.20)
[2022-05-08 06:38] LABS: Alanine Aminotransferase 31 U/L (16-61); Albumin 3.1 G/DL (3.4-5.0); Alkaline Phosphatase 38 U/L (45-117); Aspartate Amino Transferase 29 U/L (0-37); Bilirubin,Indirect 0.4 MG/DL (0.0-1.0); Bilirubin,Total 0.7 MG/DL (0.20-1.00); Calcium 8.1 MG/DL (8.5-10.1); Osmolality,Calculated 285.4 MOS/KG (273-304); Potassium 5.2 MMOL/L (3.5-5.1); Total Protein 5.5 G/DL (6.4-8.2); Total Protein 5.8 G/DL (6.4-8.2)
[2022-05-08] MEDS: INSULIN REGULAR 100 UNIT/ML SUBCUT SCH ×3 (08:00→17:06)
[2022-05-08] MEDS: PANTOPRAZOLE 40 MG TABLET PO SCH (08:09)
[2022-05-08] MEDS: ASPIRIN EC 81 MG TABLET PO SCH (08:09)
[2022-05-08] MEDS: ATORVASTATIN 40 MG TABLET PO SCH (08:09)
[2022-05-08] MEDS: FERROUS SULFATE 325 MG TABLET PO SCH (08:09)
[2022-05-08] MEDS: ASCORBIC ACID 500 MG TABLET PO SCH (08:09)
[2022-05-08] MEDS: DOCUSATE SODIUM 100 MG CAPSULE PO SCH (08:09)
[2022-05-08] MEDS: CHLORHEXIDINE 0.12% ORAL RINSE 60 ML BOTTLE SWISH/SPIT SCH ×2 (08:18→21:33)
[2022-05-08] MEDS ORDERED: AMIODARONE INJ 450 MG in DEXTROSE 5% 241 ML IV SCH ×2 (08:30→09:00)
[2022-05-08] MEDS: oxyCODONE/ACETAMINOPHEN 5-325 MG TABLET PO PRN ×2 (10:18→16:25)
[2022-05-08] MEDS: APIXABAN 5 MG TABLET PO SCH ×2 (11:25→21:33)
[2022-05-08 17:36] LABS: Calcium 8.2 MG/DL (8.5-10.1); Osmolality,Calculated 282.7 MOS/KG (273-304)
[2022-05-08] MEDS: AMIODARONE INJ 450 MG in DEXTROSE 5% 241 ML IV SCH (21:32)
[2022-05-08] MEDS: ZALEPLON 5 MG CAPSULE PO PRN (21:34)
[2022-05-09 05:48] LABS: Basophils % 0.2 % (0.0-0.8); Eosinophils # 0.1 10*3/uL (0.0-0.87); Eosinophils % 0.9 % (0.00-10.9); Hemoglobin 9.8 GM/DL (14.0-18.0); Immature Granulocytes % 0.7 %; Immature Granulocytes Absolute 0.09 #; Lymphocytes # 1.2 10*3/uL (1.4-4.0); Lymphocytes % 9.7 % (21.2-54.2); Mean Corpuscular HGB Conc 31.6 GM/DL (32-36); Mean Corpuscular Volume 93.4 FL (87-102); Mean Platelet Volume 10.8 FL (9.6-12.0); Monocytes # 1.2 10*3/uL (0.11-0.8); Monocytes % 9.9 % (1.7-12.7); Neutrophils % 78.6 % (38.7-73.9); Platelet Count 163 T/CUMM (130-400); Red Blood Count 3.32 MC/CUMM (3.8-5.5); Red Cell Distribution Width 13.7 % (9.3-17.3); White Blood Count 12.5 T/CUMM (4-12)
[2022-05-09 06:06] LABS: Calcium 8.2 MG/DL (8.5-10.1); Osmolality,Calculated 282.5 MOS/KG (273-304); Potassium 3.9 MMOL/L (3.5-5.1)
[2022-05-09 06:15] LABS: Alanine Aminotransferase 42 U/L (16-61); Albumin 2.8 G/DL (3.4-5.0); Alkaline Phosphatase 50 U/L (45-117); Aspartate Amino Transferase 34 U/L (0-37); Bilirubin,Indirect 0.8 MG/DL (0.0-1.0); Blood Urea Nitrogen 26 MG/DL (7-18); Calcium 7.9 MG/DL (8.5-10.1); Carbon Dioxide 28 MMOL/L (21-32); Chloride 106 MMOL/L (98-107); Glucose 109 MG/DL (74-106); Osmolality,Calculated 284.4 MOS/KG (273-304); Potassium 4.2 MMOL/L (3.5-5.1); Sodium 140 MMOL/L (136-145); Total Protein 5.7 G/DL (6.4-8.2)
[2022-05-09] MEDS: AMIODARONE INJ 450 MG in DEXTROSE 5% 241 ML IV SCH (08:18)
[2022-05-09] MEDS: ASPIRIN EC 81 MG TABLET PO SCH (08:46)
[2022-05-09] MEDS: oxyCODONE/ACETAMINOPHEN 5-325 MG TABLET PO PRN (08:47)
[2022-05-09] MEDS: ATORVASTATIN 40 MG TABLET PO SCH (08:47)
[2022-05-09] MEDS: PANTOPRAZOLE 40 MG TABLET PO SCH (08:48)
[2022-05-09] MEDS: ASCORBIC ACID 500 MG TABLET PO SCH (08:48)
[2022-05-09] MEDS: DOCUSATE SODIUM 100 MG CAPSULE PO SCH (08:48)
[2022-05-09] MEDS: FERROUS SULFATE 325 MG TABLET PO SCH (08:48)
[2022-05-09] MEDS: APIXABAN 5 MG TABLET PO SCH ×2 (08:49→21:19)
[2022-05-09] MEDS: AMIODARONE 200 MG TABLET PO SCH ×2 (08:49→21:19)
[2022-05-09] MEDS: CHLORHEXIDINE 0.12% ORAL RINSE 60 ML BOTTLE SWISH/SPIT SCH ×2 (11:14→21:19)
[2022-05-09] MEDS ORDERED: LACTULOSE 20 GM/30 ML UDCUP PO PRN (17:04)
[2022-05-09] MEDS: ZALEPLON 5 MG CAPSULE PO PRN (21:19)
[2022-05-10 05:43] LABS: Calcium 8.7 MG/DL (8.5-10.1); Osmolality,Calculated 279.7 MOS/KG (273-304); Potassium 3.9 MMOL/L (3.5-5.1)
[2022-05-10 05:47] LABS: Basophils % 0.2 % (0.0-0.8); Eosinophils # 0.3 10*3/uL (0.0-0.87); Eosinophils % 2.5 % (0.00-10.9); Hematocrit 30.4 VOL% (42.0-52.0); Hemoglobin 9.7 GM/DL (14.0-18.0); Immature Granulocytes % 0.9 %; Immature Granulocytes Absolute 0.12 #; Lymphocytes # 1.5 10*3/uL (1.4-4.0); Lymphocytes % 11.1 % (21.2-54.2); Mean Corpuscular HGB Conc 31.9 GM/DL (32-36); Mean Corpuscular Volume 93.5 FL (87-102); Mean Platelet Volume 10.7 FL (9.6-12.0); Monocytes # 1.4 10*3/uL (0.11-0.8); Monocytes % 10.3 % (1.7-12.7); Platelet Count 174 T/CUMM (130-400); Red Blood Count 3.25 MC/CUMM (3.8-5.5); Red Cell Distribution Width 13.7 % (9.3-17.3); White Blood Count 13.1 T/CUMM (4-12)
[2022-05-10 06:40] LABS: Albumin 2.5 G/DL (3.4-5.0); Calcium 8.7 MG/DL (8.5-10.1); Osmolality,Calculated 284.3 MOS/KG (273-304); Total Protein 6.1 G/DL (6.4-8.2)
[2022-05-10] MEDS: POLYETHYLENE GLYCOL POWDER 17 GM PACK PO SCH (10:03)
[2022-05-10] MEDS: ASCORBIC ACID 500 MG TABLET PO SCH (10:03)
[2022-05-10] MEDS: ATORVASTATIN 40 MG TABLET PO SCH (10:04)
[2022-05-10] MEDS: ASPIRIN EC 81 MG TABLET PO SCH (10:04)
[2022-05-10] MEDS: APIXABAN 5 MG TABLET PO SCH ×2 (10:04→20:23)
[2022-05-10] MEDS: DOCUSATE SODIUM 100 MG CAPSULE PO SCH (10:04)
[2022-05-10] MEDS: AMIODARONE 200 MG TABLET PO SCH ×2 (10:04→20:23)
[2022-05-10] MEDS: CHLORHEXIDINE 0.12% ORAL RINSE 60 ML BOTTLE SWISH/SPIT SCH ×2 (10:04→20:23)
[2022-05-10] MEDS: FERROUS SULFATE 325 MG TABLET PO SCH (10:04)
[2022-05-10] MEDS: PANTOPRAZOLE 40 MG TABLET PO SCH (10:06)
[2022-05-10] MEDS: ZALEPLON 5 MG CAPSULE PO PRN (20:25)
[2022-05-11 06:52] LABS: Basophils % 0.3 % (0.0-0.8); Eosinophils # 0.4 10*3/uL (0.0-0.87); Eosinophils % 2.9 % (0.00-10.9); Hematocrit 29.6 VOL% (42.0-52.0); Hemoglobin 9.4 GM/DL (14.0-18.0); Immature Granulocytes % 0.8 %; Immature Granulocytes Absolute 0.11 #; Lymphocytes # 1.1 10*3/uL (1.4-4.0); Lymphocytes % 8.7 % (21.2-54.2); Mean Corpuscular HGB Conc 31.8 GM/DL (32-36); Mean Corpuscular Volume 93.7 FL (87-102); Mean Platelet Volume 10.9 FL (9.6-12.0); Monocytes # 1.2 10*3/uL (0.11-0.8); Monocytes % 9.2 % (1.7-12.7); Neutrophils % 78.1 % (38.7-73.9); Platelet Count 225 T/CUMM (130-400); Red Blood Count 3.16 MC/CUMM (3.8-5.5); Red Cell Distribution Width 13.8 % (9.3-17.3)
[2022-05-11 07:13] LABS: Calcium 8.3 MG/DL (8.5-10.1); Osmolality,Calculated 275.8 MOS/KG (273-304); Potassium 4.3 MMOL/L (3.5-5.1)
[2022-05-11 07:14] LABS: Eosinophils 5 % (0-10); Lymphocytes 3 % (20-55); Platelet Estimate Adequate; Total Cells Counted 100
[2022-05-11 07:35] LABS: Alanine Aminotransferase 59 U/L (16-61); Albumin 2.3 G/DL (3.4-5.0); Alkaline Phosphatase 64 U/L (45-117); Aspartate Amino Transferase 31 U/L (0-37); Bilirubin,Indirect 0.6 MG/DL (0.0-1.0); Blood Urea Nitrogen 21 MG/DL (7-18); Calcium 8.3 MG/DL (8.5-10.1); Carbon Dioxide 27 MMOL/L (21-32); Chloride 104 MMOL/L (98-107); Glucose 97 MG/DL (74-106); Osmolality,Calculated 277.7 MOS/KG (273-304); Potassium 4.1 MMOL/L (3.5-5.1); Sodium 138 MMOL/L (136-145); Total Protein 5.9 G/DL (6.4-8.2)
[2022-05-11] MEDS: POLYETHYLENE GLYCOL POWDER 17 GM PACK PO SCH (09:39)
[2022-05-11] MEDS: ATORVASTATIN 40 MG TABLET PO SCH (09:40)
[2022-05-11] MEDS: DOCUSATE SODIUM 100 MG CAPSULE PO SCH (09:40)
[2022-05-11] MEDS: APIXABAN 5 MG TABLET PO SCH ×2 (09:40→21:47)
[2022-05-11] MEDS: ASCORBIC ACID 500 MG TABLET PO SCH (09:40)
[2022-05-11] MEDS: FERROUS SULFATE 325 MG TABLET PO SCH (09:40)
[2022-05-11] MEDS: PANTOPRAZOLE 40 MG TABLET PO SCH (09:40)
[2022-05-11] MEDS: ASPIRIN EC 81 MG TABLET PO SCH (09:40)
[2022-05-11] MEDS: AMIODARONE 200 MG TABLET PO SCH ×3 (09:47→21:47)
[2022-05-11] MEDS: CHLORHEXIDINE 0.12% ORAL RINSE 60 ML BOTTLE SWISH/SPIT SCH ×2 (09:47→21:47)
[2022-05-11] MEDS ORDERED: guaiFENesin 200 MG/10 ML UDCUP PO PRN (20:32)
[2022-05-12 03:59] LABS: Basophils % 0.3 % (0.0-0.8); Eosinophils # 0.4 10*3/uL (0.0-0.87); Eosinophils % 3.4 % (0.00-10.9); Hematocrit 28.8 VOL% (42.0-52.0); Hemoglobin 9.3 GM/DL (14.0-18.0); Immature Granulocytes % 1.6 %; Immature Granulocytes Absolute 0.18 #; Lymphocytes # 1.2 10*3/uL (1.4-4.0); Lymphocytes % 10.7 % (21.2-54.2); Mean Corpuscular HGB Conc 32.3 GM/DL (32-36); Mean Corpuscular Volume 92.3 FL (87-102); Mean Platelet Volume 10.4 FL (9.6-12.0); Monocytes # 1.1 10*3/uL (0.11-0.8); Monocytes % 9.6 % (1.7-12.7); Neutrophils % 74.4 % (38.7-73.9); Platelet Count 236 T/CUMM (130-400); Red Blood Count 3.12 MC/CUMM (3.8-5.5); Red Cell Distribution Width 13.9 % (9.3-17.3); White Blood Count 11.2 T/CUMM (4-12)
[2022-05-12 04:21] LABS: Alanine Aminotransferase 50 U/L (16-61); Albumin 2.2 G/DL (3.4-5.0); Alkaline Phosphatase 61 U/L (45-117); Aspartate Amino Transferase 29 U/L (0-37); Bilirubin,Indirect 0.5 MG/DL (0.0-1.0); Blood Urea Nitrogen 18 MG/DL (7-18); Calcium 8.1 MG/DL (8.5-10.1); Carbon Dioxide 26 MMOL/L (21-32); Chloride 107 MMOL/L (98-107); Glucose 101 MG/DL (74-106); Osmolality,Calculated 282.3 MOS/KG (273-304); Potassium 4.2 MMOL/L (3.5-5.1); Sodium 141 MMOL/L (136-145); Total Protein 5.9 G/DL (6.4-8.2)
[2022-05-12] MEDS ORDERED: MIDAZOLAM 10 MG/2 ML VIAL ONE (07:29)
[2022-05-12] MEDS ORDERED: MEPERIDINE 25 MG/1 ML VIAL ONE (07:29)
[2022-05-12] MEDS ORDERED: MIDAZOLAM 2 MG/2 ML VIAL IV ONE (07:40)
[2022-05-12] MEDS ORDERED: ALBUTEROL/IPRATROPIUM 3 ML NEB RESP TX ONE (07:50)
[2022-05-12] MEDS: POLYETHYLENE GLYCOL POWDER 17 GM PACK PO SCH (08:59)
[2022-05-12] MEDS: AMIODARONE 200 MG TABLET PO SCH ×2 (08:59→20:43)
[2022-05-12] MEDS: ASCORBIC ACID 500 MG TABLET PO SCH (08:59)
[2022-05-12] MEDS: ATORVASTATIN 40 MG TABLET PO SCH (09:00)
[2022-05-12] MEDS: ASPIRIN EC 81 MG TABLET PO SCH (09:00)
[2022-05-12] MEDS: FERROUS SULFATE 325 MG TABLET PO SCH (09:00)
[2022-05-12] MEDS: APIXABAN 5 MG TABLET PO SCH ×2 (09:00→20:43)
[2022-05-12] MEDS: DOCUSATE SODIUM 100 MG CAPSULE PO SCH (09:00)
[2022-05-12] MEDS: PANTOPRAZOLE 40 MG TABLET PO SCH (09:00)
[2022-05-12] MEDS: CHLORHEXIDINE 0.12% ORAL RINSE 60 ML BOTTLE SWISH/SPIT SCH ×2 (09:03→20:43)
[2022-05-12] MEDS: ZALEPLON 5 MG CAPSULE PO PRN (20:45)
[2022-05-13 05:59] LABS: Basophils # 0.1 10*3/uL (0.0-0.2); Basophils % 0.4 % (0.0-0.8); Eosinophils # 0.4 10*3/uL (0.0-0.87); Eosinophils % 3.1 % (0.00-10.9); Hematocrit 30.4 VOL% (42.0-52.0); Hemoglobin 9.6 GM/DL (14.0-18.0); Immature Granulocytes % 2.1 %; Immature Granulocytes Absolute 0.25 #; Lymphocytes # 1.4 10*3/uL (1.4-4.0); Lymphocytes % 11.5 % (21.2-54.2); Mean Corpuscular HGB Conc 31.6 GM/DL (32-36); Mean Platelet Volume 10.7 FL (9.6-12.0); Monocytes # 1.1 10*3/uL (0.11-0.8); Monocytes % 9.6 % (1.7-12.7); Neutrophils % 73.3 % (38.7-73.9); Platelet Count 316 T/CUMM (130-400); Red Blood Count 3.27 MC/CUMM (3.8-5.5); Red Cell Distribution Width 13.8 % (9.3-17.3); White Blood Count 11.9 T/CUMM (4-12)
[2022-05-13 06:20] LABS: Albumin 2.5 G/DL (3.4-5.0); Bilirubin,Total 0.8 MG/DL (0.20-1.00); Calcium 8.6 MG/DL (8.5-10.1); Osmolality,Calculated 279.4 MOS/KG (273-304); Potassium 4.1 MMOL/L (3.5-5.1); Total Protein 6.3 G/DL (6.4-8.2)
[2022-05-13 08:26] VITALS: BP 140/72
[2022-05-13] MEDS: POLYETHYLENE GLYCOL POWDER 17 GM PACK PO SCH (09:34)
[2022-05-13] MEDS: APIXABAN 5 MG TABLET PO SCH (09:35)
[2022-05-13] MEDS: ATORVASTATIN 40 MG TABLET PO SCH (09:35)
[2022-05-13] MEDS: ASPIRIN EC 81 MG TABLET PO SCH (09:36)
[2022-05-13] MEDS: AMIODARONE 200 MG TABLET PO SCH (09:36)
[2022-05-13] MEDS: FERROUS SULFATE 325 MG TABLET PO SCH (09:36)
[2022-05-13] MEDS: PANTOPRAZOLE 40 MG TABLET PO SCH (09:36)
[2022-05-13] MEDS: DOCUSATE SODIUM 100 MG CAPSULE PO SCH (09:36)
[2022-05-13] MEDS: ASCORBIC ACID 500 MG TABLET PO SCH (09:36)
[2022-05-13] MEDS: CHLORHEXIDINE 0.12% ORAL RINSE 60 ML BOTTLE SWISH/SPIT SCH (09:37)
[2022-05-13] MEDS ORDERED: METOPROLOL TARTRATE 25 MG TABLET PO SCH (10:30)
== END 2022-05-13 11:45 | disposition home or self-care (01) | DRG 234 ==
LOC: N.ED 15:43 → N.TELES 15:43 → SUATTDRO 05-04 15:13 → N.CVR 05-05 15:05 → N.ICU 05-06 17:24 → N.TELES 05-08 12:48
PROVIDERS: ADMIT Family Medicine; ATTEND Internal Medicine